=== PATIENT | male | born 1995 | race Caucasian/White ===

== ENCOUNTER 2021-10-21 14:02 | Emergency (ER) | payer OTHER, SELFPAY ==
[2021-10-21 14:40] VITALS: BP 133/84; PULSE 84; RESP 18; TEMP 36.7; O2SAT 98; BMI 22.9
--- NOTE | 2021-10-21 16:31 | CRLHL7_ITS ---
For Patients: As a result of the Cures Act, medical imaging exams and procedure reports are released immediately into your electronic medical record. You may view this report before your referring provider. If you have questions, please contact your health care provider. Indication: FALL, HEAD INJURY LOC 10/19/21 Technique: CT of the head without contrast. Coronal and sagittal reformats. Bone and soft tissue windows. Comparison: CT 08/03/2019 Findings: No acute intracranial hemorrhage or extra-axial collection. No evidence of acute cortical infarction. No mass effect or midline shift. Normal cerebral volume. The ventricles are normal in size, shape and contour. There is normal argueta and white matter differentiation. The orbital contents are normal. No calvarial fractures. No lytic or sclerotic osseous lesions within the calvarium or skull base. Scalp and other imaged soft tissue structures are normal. Mastoid air cells are clear. Paranasal sinuses are well aerated. Impression: No acute intracranial abnormality. No significant changes compared to the prior exam. Please note that all CT scans at this facility use dose modulation, iterative reconstruction, and/or weight-based dosing when appropriate to reduce radiation dose to as low as reasonably achievable. Dictated by Dennis Sevilla MD @ 10/21/2021 5:35:51 PM (Electronically Signed)
--- NOTE | 2021-10-21 17:35 | ED_ITS ---
HPI - General Adult General Time Seen by Provider: 17:36 Date Seen: 10/21/21 Chief complaint: Dizziness/Vertigo Stated complaint: Passed out hit head wednesday, still dizzy Time Seen by Provider: 10/21/21 17:27 Source: patient Mode of arrival: ambulatory Limitations: no limitations History of Present Illness HPI narrative: 26-year-old male who comes in today after a syncopal episode 3 days ago. He reports that he was out side all day, did drink some water but did not eat anything. When he got side, he ate hamburger and [place] fries, got up and went back outside, became lightheaded and passed out. He hit his head. Prior to passing out he noted lightheadedness but no chest pain or palpitations. He was nauseated when he woke up. Since then he has had a little lightheadedness today along with a mild headache resolved with ibuprofen. He denies blurry vision or double vision although says when he was working on his computer and staring at the screen he did get a little lightheaded again today. He denies any medications, alcohol use. He reports that he has had 2 similar episodes to this in the past, most recently 8 days ago. By his report, he does not have any abnormal movements and wakes up fatigued but otherwise feeling normal. No period of confusion after these episodes. Related Data Home Medications Medication Instructions Recorded Confirmed No Known Home Medications 10/21/21 10/21/21 Allergies Allergy/AdvReac Type Severity Reaction Status Date / Time No Known Drug Allergies Allergy Verified 10/21/21 14:40 Review of Systems Status of ROS: Reports: 10 or more systems reviewed and unremarkable except as noted in History and below [facility] Social History Smoking Status: Current every day smoker Do you use any of these nicotine containing products: E-Cigarettes Second hand tobacco smoke exposure: No How often do you have a drink containing alcohol: never How often do you have six or more drinks on one occasion: Never AUDIT-C Alcohol total score: 0 Non-prescribed substance use: marijuana (any form) Exam Const: Vital Signs, click to edit/add: Vital Signs - 24 hr 10/21/21 14:40 10/21/21 18:30 Temperature 98.0 F Pulse Rate [Right Pulse Oximeter] 84 59 L Respiratory Rate 18 Blood Pressure [[facility]] 133/84 133/81 Pulse Oximetry 98 98 Documenting provider has reviewed patient's vital signs: yes Common normals: no apparent distress, oriented x3, alert and well nourished HENMT: Common normals: normocephalic, external ears normal and external nose n ormal Head and scalp: normocephalic Nose: external nose normal External ear: external ears normal Other: Abrasion of the right forehead Eye: Common normals: PERRL and conjunctivae normal Conjunctiva: conjunctiva(e) normal Pupil: PERRL Neck & C-Spine: Common normals: full ROM, no lymphadenopathy and supple Chest: Common normals: palpation of chest normal Resp: Common normals: normal respiratory effort and clear to auscultation bilaterally Auscultation: clear to auscultation bilaterally Cardio: Common normals: regular rate, regular rhythm and no murmurs Rate: regular rate Rhythm: regular rhythm GI: Common normals: Normal to inspection, nondistended, normoactive bowel sounds present, soft to palpation and non-tender Palpation: soft : Common normals: no CVA tenderness Bladder/kidney exam: no CVA tenderness Back & Pelvis: Common normals: no CVA tenderness and thoracic and lumbar spine normal to inspection Extremity: Common normals: normal to inspection, full ROM and no pedal edema Neuro: Common normals: oriented x3, CN's II-XII intact bilaterally and no focal motor deficits Sensorium/orientation: alert Psych: Common normals: mental status grossly normal Skin: Common normals: no rashes or lesions noted General skin exam: no rashes or lesions noted Course Reevaluation(s) Reevaluation #1: CT scan is negative, basic panel is reassuring. EKG is reassuring. Patient is stable for discharge with outpatient follow-up Time: 18:28 Vital Signs Vital signs: Initial Vital Signs Temperature 98.0 F 10/21/21 14:40 Temperature Source Temporal Artery Scan 10/21/21 14:40 Pulse Rate 84 10/21/21 14:40 Respiratory Rate 18 10/21/21 14:40 Blood Pressure 133/84 10/21/21 14:40 Blood Pressure Mean 100 10/21/21 14:40 Blood Pressure Position Sitting 10/21/21 14:40 Pulse Oximetry 98 10/21/21 14:40 Oxygen Delivery Method 10/21/21 14:40 Vital Signs Temperature 98.0 F 10/21/21 14:40 Pulse Rate 84 10/21/21 14:40 Respiratory Rate 18 10/21/21 14:40 Blood Pressure 133/84 10/21/21 14:40 Pulse Oximetry 98 10/21/21 14:40 Temperature 98.0 F 10/21/21 14:40 Pulse Rate 59 L 10/21/21 18:30 Respiratory Rate 18 10/21/21 14:40 Blood Pressure 133/81 10/21/21 18:30 Pulse Oximetry 98 10/21/21 18:30 Medical Decision Making MDM Narrative Medical decision making narrative: Patient is seen and examined, prior records are reviewed. Differential diagnosis includes but not limited to dehydration, electrolyte disturbance, dysrhythmia, simple faint, orthostatic hypotension, seizure. Patient with syncopal episode 3 days ago likely related to being outside in the heat all day and poor oral intake. No preceding chest pain or palpitations. He did hit his head and has some abrasions on the forehead. He has had a similar episode to this about 8 days ago. No abnormal movements or postictal is to suggest seizure. No preceding chest pain or palpitations to suggest cardiac EKG is ordered, head CT is negative for any finding that would contribute or be a result of his syncopal episode and head injury. If EKG and labs are reassuring, patient can be discharged with continued outpatient for his syncopal episodes. Medical Records Medical records reviewed: Yes I reviewed the patient's medical records Lab Data Lab results reviewed: Yes I reviewed the patient's lab results Labs: Lab Results 10/21/21 Range/Units 17:22 Sodium 138 (135-149) mmol/L Potassium 3.8 (3.6-5.1) mmol/L Chloride 102 (96-114) mmol/L Carbon Dioxide 24 (20-32) mmol/L BUN 9 (5-24) mg/dL Creatinine 0.9 (0.5-1.5) mg/dL Estimated Creat Clear 125.86 Glucose 83 (60-115) mg/dL Calcium 9.5 (8.4-10.6) mg/dL ECG Data Attestation: I personally reviewed and interpreted this ECG as follows: Prior ECG tracings: not available for review Interpretation: Performed at 6:14 p.m. only reviewed and interpreted by me demonstrates sinus rhythm rate 55, no acute ST elevations or depressions normal intervals, normal axis, NE 144. No prior for comparison. Discharge Plan Discharge Clinical Impression: Abrasion of forehead, Syncope Patient Disposition: Home, Self-Care Additional Instructions: Make sure you are eating regularly and getting lots of fluids. Activity Level: No Restrictions Discharge Diet: Regular Prescriptions: No Action No Known Home Medications 0RF Follow Up/Referrals: Olamide Shultz MD [Primary Care Provider] - 2 Days Stand Alone Forms: [employer] Info Instructions
[2021-10-21 18:04] LABS: Chloride* 102 mmol/L (96-114); Potassium* 3.8 mmol/L (3.6-5.1); Sodium* 138 mmol/L (135-149)
[2021-10-21 18:07] LABS: Blood Urea Nitrogen* 9 mg/dL (5-24); Calcium* 9.5 mg/dL (8.4-10.6); Carbon Dioxide* 24 mmol/L (20-32); Creatinine* 0.9 mg/dL (0.5-1.5); Est. Creatinine Clearance* 125.86; Estimated Glomerular Filt Rate 122.31; Glucose* 83 mg/dL (60-115)
[2021-10-21 18:30] VITALS: BP 133/81; PULSE 59; O2SAT 98
== END 2021-10-21 18:42 | disposition home or self-care (01) ==
PROVIDERS: Emergency Provider Family Medicine; PCP Family Medicine
DX: S00.81XA Abrasion of other part of head, initial encounter (principal); R55 Syncope and collapse
CPT/HCPCS: 36415; 70450; 80048; 93005; 99284

== ENCOUNTER 2021-11-17 13:02 | Outpatient (CLI) | payer OTHER, SELFPAY ==
[2021-11-17 13:34] LABS: Hematocrit 41.6 % (37.0-53.0); Hemoglobin* 14.5 gm/dL (13.5-17.5); Mean Corpuscular HGB Conc 35 gm/dL (32-36); Mean Corpuscular Hemoglobin 29 pg (26-34); Mean Corpuscular Volume 83 fL (80-100); Platelet Count* 218 K/uL (140-440); Red Blood Count 5.04 m/uL (4.30-5.90); White Blood Count* 5.94 K/uL (4.50-11.00)
[2021-11-17 13:37] LABS: Slide Review Reflex No
[2021-11-17 22:10] LABS: Cholesterol* 115 mg/dL (90-199); HDL Cholesterol* 51 mg/dL (>=40); LDL Cholesterol Calculated 53 mg/dL (<100); Triglycerides* 56 mg/dL (40-149)
[2021-11-17 23:13] LABS: Chlamydia DNA Amplified* NOT DETECTED (No Detected); GC DNA Amplified* NOT DETECTED (No Detected)
[2021-11-19 13:34] LABS: HIV Serologic Interpretation HIV Abs Neg; HIV-1 Antibody Negative (Negative); HIV-2 Antibody Negative (Negative)
[2021-11-20 11:53] LABS: HIV-1 Qnt NAAT copies/mL Not Detected log cpy/mL
== END 2021-11-17 13:03 | disposition home or self-care (01) ==
PROVIDERS: PCP Family Medicine; Visit Provider Family Medicine
DX: Z00.00 Encounter for general adult medical examination without abnormal findings (principal); E04.9 Nontoxic goiter, unspecified; R55 Syncope and collapse; Z11.3 Encounter for screening for infections with a predominantly sexual mode of transmission; Z13.6 Encounter for screening for cardiovascular disorders
CPT/HCPCS: 80061; 84443; 85027; 86702; 87491; 87591